=== PATIENT | male | born 1955 | race Caucasian/White ===

== ENCOUNTER 2017-10-29 14:22 | Emergency (ER) | payer BC ==
[~2017-10-29] VITALS: Ht 177.8 cm; Wt 81.2 kg
--- NOTE | 2017-10-29 15:30 | NUR ---
A/OX4 C/O LOWER, MID BACK SPASMS X SUNDAY, NO INJURY. FACIAL GRIMACING NOTED. VSS NAD RR EVEN AND UNLABORED. PENDING ER MD EVALUATION
[2017-10-29 15:45] VITALS: BP 117/75
--- NOTE | 2017-10-29 15:45 | NUR ---
Patient discharged to home in stable condition. Written and verbal after care instructions given. Patient verbalizes understanding of instruction.
== END 2017-10-29 15:47 | disposition home or self-care (01) ==
LOC: ER 14:27
DX: M54.5 Low back pain (principal); G89.29 Other chronic pain; J45.909 Unspecified asthma, uncomplicated; F10.10 Alcohol abuse, uncomplicated; F17.200 Nicotine dependence, unspecified, uncomplicated; Z91.018 Allergy to other foods; Z91.010 Allergy to peanuts
CPT/HCPCS: 99283; A4606; Z7610